=== PATIENT | female | born 1985 | race American Indian/Alaskan Native ===

== ENCOUNTER 2016-12-22 16:40 | Emergency (ER) | payer SELFPAY ==
[2016-12-22 17:24] VITALS: BP 133/70
[2016-12-22] MEDS ORDERED: DECADRON IM ONE (19:46)
[2016-12-22] MEDS ORDERED: TORADOL IM ONE (19:46)
--- NOTE | 2016-12-22 19:46 | Emergency Department Report ---
ED Lower Extremity HPI - General Chief Complaint: Extremity Injury, Lower Stated Complaint: FELL/RT KNEE PAIN Time Seen by Provider: 12/22/16 19:20 Source: patient Mode of arrival: Ambulatory Limitations: No Limitations - History of Present Illness Initial Comments: Patient here reported that she fell at 12 PM today after tripping on some steps. She said she slipped down 2 steps and landed on her right knee now she has pain 8 out of 10 with swelling. She says she did not take any pain medication prior to coming to the emergency room. Denies any fever or chills. Denies any pain to her hips, back, legs or feet. Denies any head injury or loss of consciousness.Denies any back pain and upper extremities. MD Complaint: knee injury -: This afternoon Injury: Knee: Right (pain, swelling) Type of Injury: blunt (fell and hit her knee on the concrete) Place: street/outdoors Severity: severe Severity scale (0 -10): 8 Improves With: nothing Worsens With: weight bearing, movement, palpation Context: fall, walking Other Symptoms: loss of consciousness Associated Symptoms: swelling, ambulatory. denies: snap/pop sensation, numbness , tingling, unable to bear weight, able to partially bear weight Treatments Prior to Arrival: other (no medicines taken) - Related Data Previous Rx's Medication Instructions Recorded Last Taken Type Ibuprofen [Motrin] 600 mg PO Q8H PRN #15 tablet 12/22/16 Unknown Rx Allergies Allergy/AdvReac Type Severity Reaction Status Date / Time No Known Allergies Allergy Unverified 12/22/16 17:19 ED Review of Systems ROS: Stated complaint: FELL/RT KNEE PAIN Other details as noted in HPI Comment: All other systems reviewed and negative Constitutional: denies: chills, fever Respiratory: no symptoms reported Cardiovascular: denies: chest pain, palpitations, edema, syncope Gastrointestinal: denies: abdominal pain, nausea, vomiting, diarrhea Musculoskeletal: joint swelling, arthralgia. denies: back pain Skin: denies: rash Neurological: abnormal gait (due to right knee pain). denies: headache, weakness, numbness, paresthesias, confusion, vertigo ED Past Medical Hx - Past Medical History Previous Medical History?: No - Surgical History Past Surgical History?: No - Family History Family history: hypertension - Social History Smoking Status: Current Every Day Smoker Substance Use Type: None - Medications Home Medications: Home Medications Medication Instructions Recorded Confirmed Last Taken Type Ibuprofen [Motrin] 600 mg PO Q8H PRN #15 tablet 12/22/16 Unknown Rx ED Physical Exam - General Limitations: No Limitations General appearance: alert, in no apparent distress - Head Head exam: Present: atraumatic, normocephalic, normal inspection - Expanded Head Exam Expanded Head exam: Absent: laceration, abrasion, contusion, hematoma, racoon eyes, miles's sign, general tenderness, tenderness of temporal artery, CSF rhinorrhea , CSF otorrhea - Eye Eye exam: Present: normal appearance, PERRL, EOMI Pupils: Present: normal accommodation - Neck Neck exam: Present: normal inspection, full ROM. Absent: tenderness, meningismus, lymphadenopathy - Expanded Neck Exam Expanded Neck exam: Absent: tenderness, midline deformity, anterior neck swelling, tracheal deviation - Respiratory Respiratory exam: Present: normal lung sounds bilaterally. Absent: respiratory distress, chest wall tenderness - Cardiovascular Cardiovascular Exam: Present: regular rate, normal rhythm, normal heart sounds - GI/Abdominal GI/Abdominal exam: Present: soft, normal bowel sounds. Absent: distended, tenderness, guarding, rebound, rigid - Extremities Exam Extremities exam: Present: normal inspection, full ROM (patient with limited range of motion to right knee due to pain), tenderness (right anterior knee), normal capillary refill, joint swelling. Absent: pedal edema, calf tenderness - Expanded Lower Extremity Exam Right Hip exam: Present: normal inspection, full ROM, pelvic stability. Absent: tenderness, swelling, abrasion, laceration, ecchymosis, deformity, crepidus, dislocation, erythema, external rotation, internal rotation, shortening Upper Leg exam: Present: normal inspection, full ROM. Absent: tenderness, swelling, abrasion, laceration, ecchymosis, deformity, crepidus, dislocation, erythema Knee exam: Present: tenderness (tender to anterior knee), swelling (minimal swelling to anterior knee), full knee extension. Absent: full ROM (patient able to fully extend and flex her knee but she said it was very painful), abrasion, laceration, ecchymosis, deformity, crepidus, dislocation, erythema, effusion, pain w/ pronation/supination, posterior draw sign, pain/laxity with valgus, pain/laxity with varus Lower Leg exam: Present: normal inspection, full ROM. Absent: tenderness, swelling, abrasion, laceration, ecchymosis, deformity, crepidus, dislocation, erythema, palpable cord, Bianka's sign Ankle exam: Present: normal inspection, full ROM. Absent: tenderness, swelling , abrasion, laceration, ecchymosis, deformity, crepidus, dislocation, erythema, anterior draw sign Foot/Toe exam: Present: normal inspection, full ROM. Absent: tenderness, swelling, abrasion, laceration, ecchymosis, deformity, crepidus, dislocation, erythema, amputation, puncture wound, foreign body, calcaneal tenderness, tenderness at base of 5th metatarsal, nail avulsion, subungual hematoma Neuro vascular tendon exam: Present: no vascular compromise. Absent: pulse deficit, abnormal cap refill, motor deficit, sensory deficit, tendon deficit, extremity cold to touch, pallor, abnormal 2-point discrimination, decreased fine /light touch, foot drop, peroneal nerve deficit, significant pain with passive ROM of distal joint Gait: Positive: observed and limited by pain - Back Exam Back exam: Present: normal inspection, full ROM. Absent: tenderness, CVA tenderness (R), CVA tenderness (L), muscle spasm, paraspinal tenderness, vertebral tenderness, rash noted - Neurological Exam Neurological exam: Present: alert, oriented X3, abnormal gait (abnormal gait to Right lower extremity due to right knee injury), reflexes normal - Psychiatric Psychiatric exam: Present: normal affect, normal mood - Skin Skin exam: Present: warm, dry, intact, normal color. Absent: rash ED Course Vital Signs 12/22/16 17:19 Temperature 98.2 F Pulse Rate 90 Respiratory 20 Rate Blood Pressure 133/70 O2 Sat by Pulse 100 Oximetry - Reevaluation(s) Reevaluation #1: 12/22/16 21:25 had uneventful stay Reevaluation #2: 12/22/16 21:26 Patient received Toradol 60 mg IM and Decadron 10 mg IM and emergency room with relief of the pain. She is able to ambulate. - Orthopedic Splinting/Casting Injury #1 Side: right Lower Extremity Injury Location: knee Lower Extremity Immobilizer: Darrius wrap ED Lower Extremity MDM - Radiology Data Radiology results: report reviewed Right knee x-ray revealed no acute fracture/dislocation or effusion - Medical Decision Making ED course: Patient here status post fall with right knee contusion. I Discussed with her that her x-ray was negative for fracture or dislocation but if she continues to have pain on Monday she needs to follow-up with orthopedic doctor who came to more in depth testing to check for ligament injury. Patient is able to weight-bear with minimal pain. She was given Toradol 60 mg and Decadron 10 mg IM in emergency room which relieved her pain. Procedure note for documentation on splinting. Patient was understanding of discharge diagnosis and treatment plan. Discharge home with prescription for Motrin Critical care attestation.: If time is entered above; I have spent that time in minutes in the direct care of this critically ill patient, excluding procedure time. ED Disposition Clinical Impression: Fall from ground level Contusion of right knee Qualifiers: Encounter type: initial encounter Qualified Code(s): S80.01XA - Contusion of right knee, initial encounter Knee pain, right Qualifiers: Chronicity: acute Qualified Code(s): M25.561 - Pain in right knee Right knee injury Qualifiers: Encounter type: initial encounter Qualified Code(s): S89.91XA - Unspecified injury of right lower leg, initial encounter Disposition: DISCHARGED TO HOME OR SELFCARE Is pt being admited?: No Does the pt Need Aspirin: No Condition: Stable Instructions: Arthralgia (ED), Knee Exercises (GEN), Knee Pain (ED), Fall Prevention (ED) Additional Instructions: Please rest, ice, compress and elevate right knee for 72 hours. Take Motrin as prescribed. If you still continue to have knee pain in 3-4 days. Follow up with orthopedic doctor that we will refer to discharge instruction per report Prescriptions: Ibuprofen [Motrin] 600 mg PO Q8H PRN #15 tablet PRN Reason: Pain Referrals: SUZETTE FLOWERS MD [Staff Physician] - 12/26/16 Forms: Work/School Release Form(ED)
--- NOTE | 2016-12-22 21:06 | XRay Report ---
FINAL REPORT EXAM: XR KNEE 3V RT HISTORY: fall with RT knee pain TECHNIQUE: Three views of the right knee PRIORS: None. FINDINGS: The bones are normally aligned and mineralized. The joint spaces are well-preserved. There is no evidence of acute fracture. The soft tissues are unremarkable. IMPRESSION: No evidence of acute fracture or subluxation.
== END 2016-12-22 21:39 | disposition home or self-care (01) ==
LOC: ED 16:40
DX: S80.01XA Contusion of right knee, initial encounter (principal); W18.30XA Fall on same level, unspecified, initial encounter; Y93.9 Activity, unspecified; Y92.9 Unspecified place or not applicable; Y99.9 Unspecified external cause status
CPT/HCPCS: 73562; 96372; 99283; J1100; J1885